=== PATIENT | male | born 1950 | race American Indian/Alaskan Native ===

== ENCOUNTER 2019-12-15 10:55 | Emergency (ER) | payer MEDICARE ==
[2019-12-15 11:20] VITALS: BP 197/115
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
== END 2019-12-15 13:08 | disposition home or self-care (01) ==
LOC: ED 10:55
DX: M54.2 Cervicalgia (principal); I10 Essential (primary) hypertension; Z79.899 Other long term (current) drug therapy; V49.59XA Passenger injured in collision with other motor vehicles in traffic accident, initial encounter; Y92.410 Unspecified street and highway as the place of occurrence of the external cause; Y93.89 Activity, other specified; Y99.8 Other external cause status
CPT/HCPCS: 99281